=== PATIENT | female | born 1975 | race Caucasian/White ===

== ENCOUNTER 2021-01-07 17:34 | Emergency (ER) | payer OTHER ==
[2021-01-07 18:28] LABS: RED BLOOD COUNT 4.18 M/UL (4.00-5.10); WHITE BLOOD COUNT 15.9 K/UL (4.5-11.0)
[2021-01-07 18:49] LABS: BUN/CREATININE RATIO 18 (0-10)
[2021-01-07] MEDS ORDERED: ZOFRAN ODT 4 MG4 MG GT (23:03)
[2021-01-07] MEDS ORDERED: BACTRIM DS TAB1 EACH PO (23:03)
[2021-01-07] MEDS ORDERED: TORADOL 10 MG T10 MG PO (23:03)
== END 2021-01-07 23:22 | disposition home or self-care (01) ==
LOC: ER1 17:34
PROVIDERS: Physician Assistant
DX: R10.9 Unspecified abdominal pain (principal); R11.2 Nausea with vomiting, unspecified; R19.7 Diarrhea, unspecified; Z88.0 Allergy status to penicillin; Z86.19 Personal history of other infectious and parasitic diseases; F17.200 Nicotine dependence, unspecified, uncomplicated
CPT/HCPCS: 80053; 81001; 82150; 83690; 85025; 99284; Q9967